=== PATIENT | male | born 1955 | race Caucasian/White ===

== ENCOUNTER → 2025-05-25 08:04 | Outpatient (BNVA) | payer MEDICARE, SELFPAY | PROVIDERS: PCP Nurse Practitioner Family; Referring Provider Nurse Practitioner Family; Visit Provider Nurse Practitioner Gerontology | DX: N20.0 Calculus of kidney (principal); N40.1 Benign prostatic hyperplasia with lower urinary tract symptoms; N13.8 Other obstructive and reflux uropathy; R35.0 Frequency of micturition; R39.15 Urgency of urination; R39.9 Unspecified symptoms and signs involving the genitourinary system | CPT/HCPCS: 99205; 81002; 51798 ==